=== PATIENT | female | born 1975 | race Asian ===

== ENCOUNTER 2023-07-04 14:38 | Inpatient (IN) | payer BC, OTHER ==
[2023-07-04] MEDS ORDERED: MAGNESIUM SULFATE IN WATER 2 GM/50 ML IVPB IVPB ONE (14:50)
[2023-07-04] MEDS ORDERED: ALBUTEROL SO4 2.5/IPRATROPIUM 0.5 INH SOL 3 ML VIAL.NEB. NEB ONE (14:51)
[2023-07-04] MEDS: ALBUTEROL SO4 2.5/IPRATROPIUM 0.5 INH SOL 3 ML VIAL.NEB. NEB ONE (14:59)
[2023-07-04] MEDS: MAGNESIUM SULFATE IN WATER 2 GM/50 ML IVPB IVPB ONE (14:59)
[2023-07-04] MEDS ORDERED: ALBUTEROL SO4 0.083% IH SOL 2.5 MG/3 ML VIAL.NEB. NEB ONE ×4 (16:21→21:34)
[2023-07-04] MEDS: ALBUTEROL SO4 0.083% IH SOL 2.5 MG/3 ML VIAL.NEB. NEB ONE ×2 (16:28→18:52)
[2023-07-04] MEDS ORDERED: OSELTAMIVIR PHOSPHATE 75 MG CAPSULE ONE (17:16)
[2023-07-04] MEDS: OSELTAMIVIR PHOSPHATE 75 MG CAPSULE PO ONE (17:17)
[2023-07-04 18:01] LABS: POTASSIUM 3.9 mmol/L (3.5-5.1)
[2023-07-04 18:04] LABS: ALBUMIN 3.6 g/dl (3.4-5.0); BLOOD UREA NITROGEN 9.9 mg/dL (7-18)
[2023-07-04 18:07] LABS: CREATININE 0.6 mg/dL (0.55-1.3)
[2023-07-04 18:09] LABS: BILIRUBIN,TOTAL 0.4 mg/dL (0.2-1); TOT PROT 7.7 g/dl (6.4-8.2)
[2023-07-04 18:19] LABS: BASO % 0.7 % (0-2.0); EOS % 0.1 % (0-4.5); HEMATOCRIT 34.1 % (32.4-45.2); HEMOGLOBIN 10.3 GM/dL (10.7-15.3); LYMPH % 6.4 % (8-40); MCHC 30.1 g/dl (32.0-36.0); MEAN CELL VOLUME 63.8 fl (80-96); MEAN PLT VOLUME 8.9 fl (7.5-11.1); MONO % 8.2 % (3.8-10.2); NEUT % 84.6 % (42.8-82.8); PLATELET COUNT 381 10^3/uL (134-434); RBC 5.34 M/mm3 (3.60-5.2); RDW 25.4 % (11.6-15.6); WHITE BLOOD COUNT 13.9 K/mm3 (4.0-10.0)
[2023-07-04 18:20] LABS: MCH 19.2 pg (25.7-33.7)
[2023-07-04 18:40] LABS: ANISOCYTOSIS 3+; MACROCYTOSIS 0; OVALOCYTE 1+; TARGET CELLS 1+
[2023-07-04] MEDS: ALBUTEROL SO4 0.083% IH SOL 2.5 MG/3 ML VIAL.NEB. NEB SCH (18:52)
[2023-07-04] MEDS ORDERED: LEVALBUTEROL HCL 0.63 MG/3 ML VIAL.NEB. IH PRN (22:39)
[2023-07-04] MEDS ORDERED: methylPREDNISolone NA SUCC 125 MG/2 ML VIAL ONE (22:47)
[2023-07-04] MEDS: methylPREDNISolone NA SUCC 125 MG/2 ML VIAL IVPUSH ONE (22:50)
[2023-07-04 23:15] LABS: ARTERIAL BLD GAS O2 SATURATION 92.7 % (95-98); ARTERIAL BLOOD GAS BASE EXCESS 4.7 mmol/L (-2-2); ARTERIAL BLOOD GAS PO2 60.5 mmHg (80-100); ARTERIAL BLOOD GAS pH 7.475 (7.350-7.450)
[2023-07-05] MEDS: LEVALBUTEROL HCL 0.63 MG/3 ML VIAL.NEB. IH PRN (00:07)
[2023-07-05 00:46] VITALS: BMI 32.4
[2023-07-05] MEDS ORDERED: ALBUTEROL SO4 2.5/IPRATROPIUM 0.5 INH SOL 3 ML VIAL.NEB. NEB SCH (08:00)
[2023-07-05 08:10] LABS: HEMATOCRIT 33.2 % (32.4-45.2); HEMOGLOBIN 9.8 GM/dL (10.7-15.3); MCHC 29.5 g/dl (32.0-36.0); MEAN CELL VOLUME 63.8 fl (80-96); MEAN PLT VOLUME 8.4 fl (7.5-11.1); PLATELET COUNT 383 10^3/uL (134-434); RDW 25.4 % (11.6-15.6); WHITE BLOOD COUNT 10.5 K/mm3 (4.0-10.0)
[2023-07-05 08:20] LABS: MCH 18.9 pg (25.7-33.7)
[2023-07-05 08:29] LABS: POTASSIUM 4.7 mmol/L (3.5-5.1)
[2023-07-05 08:33] LABS: ALBUMIN 3.4 g/dl (3.4-5.0); CALCIUM 8.8 mg/dL (8.5-10.1)
[2023-07-05 08:34] LABS: MAGNESIUM 2.5 mg/dL (1.8-2.4)
[2023-07-05 08:36] LABS: CREATININE 0.8 mg/dL (0.55-1.3)
[2023-07-05 08:38] LABS: BILIRUBIN,TOTAL 0.6 mg/dL (0.2-1); TOT PROT 7.2 g/dl (6.4-8.2)
[2023-07-05] MEDS: ALBUTEROL SO4 2.5/IPRATROPIUM 0.5 INH SOL 3 ML VIAL.NEB. NEB SCH (08:45)
[2023-07-05] MEDS ORDERED: methylPREDNISolone NA SUCC 40 MG/1 ML VIAL IVPUSH SCH (10:00)
[2023-07-05] MEDS: ENOXAPARIN NA (PORCINE) 40 MG/0.4 ML DISP.SYRIN SQ SCH (10:20)
[2023-07-05] MEDS: methylPREDNISolone NA SUCC 40 MG/1 ML VIAL IVPUSH SCH (10:21)
[2023-07-05] MEDS: OSELTAMIVIR PHOSPHATE 75 MG CAPSULE PO SCH (10:21)
[2023-07-05] MEDS: FLUTICASONE/UMECLIDIN/VILANTER(200-62.5-25 TRELEGY ELLIPTA) INAHLER IH SCH (10:21)
[2023-07-05 11:15] VITALS: RESP 18
[2023-07-05] MEDS: MONTELUKAST NA 10 MG TABLET PO SCH (21:10)
[2023-07-05] MEDS: ESCITALOPRAM OXALATE 10 MG TABLET PO SCH (21:10)
[2023-07-06 07:43] LABS: POTASSIUM 5.1 mmol/L (3.5-5.1)
[2023-07-06 07:49] LABS: ALBUMIN 2.9 g/dl (3.4-5.0); BASO % 0.2 % (0-2.0); BLOOD UREA NITROGEN 17.7 mg/dL (7-18); CALCIUM 8.8 mg/dL (8.5-10.1); HEMOGLOBIN 10.2 GM/dL (10.7-15.3); LYMPH % 15.2 % (8-40); MAGNESIUM 2.5 mg/dL (1.8-2.4); MCHC 30.1 g/dl (32.0-36.0); MEAN PLT VOLUME 8.7 fl (7.5-11.1); MONO % 8.6 % (3.8-10.2); PLATELET COUNT 398 10^3/uL (134-434); RBC 5.32 M/mm3 (3.60-5.2); RDW 25.7 % (11.6-15.6); WHITE BLOOD COUNT 8.6 K/mm3 (4.0-10.0)
[2023-07-06 07:51] LABS: MCH 19.2 pg (25.7-33.7)
[2023-07-06 07:52] LABS: CREATININE 0.6 mg/dL (0.55-1.3)
[2023-07-06 07:53] LABS: BILIRUBIN,TOTAL 0.4 mg/dL (0.2-1); TOT PROT 6.5 g/dl (6.4-8.2)
[2023-07-06] MEDS: methylPREDNISolone NA SUCC 40 MG/1 ML VIAL IVPUSH SCH (10:08)
[2023-07-07 07:35] LABS: BASO % 0.3 % (0-2.0); HEMATOCRIT 34.2 % (32.4-45.2); HEMOGLOBIN 10.2 GM/dL (10.7-15.3); LYMPH % 11.3 % (8-40); MCHC 29.8 g/dl (32.0-36.0); MEAN CELL VOLUME 63.8 fl (80-96); MEAN PLT VOLUME 8.6 fl (7.5-11.1); MONO % 6.6 % (3.8-10.2); NEUT % 81.8 % (42.8-82.8); PLATELET COUNT 379 10^3/uL (134-434); RBC 5.37 M/mm3 (3.60-5.2); WHITE BLOOD COUNT 8.2 K/mm3 (4.0-10.0)
[2023-07-07 08:02] LABS: POTASSIUM 4.7 mmol/L (3.5-5.1)
[2023-07-07 08:07] LABS: ALBUMIN 2.8 g/dl (3.4-5.0); CALCIUM 8.8 mg/dL (8.5-10.1)
[2023-07-07 08:08] LABS: MAGNESIUM 2.2 mg/dL (1.8-2.4)
[2023-07-07 08:10] LABS: CREATININE 0.6 mg/dL (0.55-1.3)
[2023-07-07 08:11] LABS: BILIRUBIN,TOTAL 0.4 mg/dL (0.2-1); TOT PROT 6.3 g/dl (6.4-8.2)
[2023-07-07 08:14] LABS: BLOOD UREA NITROGEN 17.3 mg/dL (7-18)
[2023-07-07 12:57] VITALS: TEMP 97.9
[2023-07-07 14:47] VITALS: BP 155/84; PULSE 106
== END 2023-07-07 14:30 | disposition home or self-care (01) | DRG 203 ==
LOC: JER 14:38 → JERBED 17:51 → OBSVTOIN 22:35 → J4S 23:53
PROVIDERS: ADMIT Internal Medicine; ATTEND Student in an Organized Health Care Education/Training Program
DX: J45.901 Unspecified asthma with (acute) exacerbation (principal); J10.1 Influenza due to other identified influenza virus with other respiratory manifestations
CPT/HCPCS: 0241U-QW; 36415; 36600; 71046-TC-FY; 80053; 82803; 83735; 84100; 84484; 85025; 93005; 93010; 94010; 94640; 99285-25; G0378